=== PATIENT | male | born 1995 | race Caucasian/White ===

== ENCOUNTER 2023-07-05 17:12 | Emergency (ER) | payer OTHER, SELFPAY ==
[2023-07-05 18:10] VITALS: BP 132/80; PULSE 90; RESP 20; TEMP 36.9; O2SAT 99; BMI 35.6
--- NOTE | 2023-07-05 18:11 | ED.GENADULT ---
HPI - General Adult General Chief complaint: Skin/Abscess/Foreign Body Stated complaint: R big toe injury, chemical burn on feet Time Seen by Provider: 07/05/23 18:26 Source: patient and RN notes reviewed Mode of arrival: ambulatory Limitations: no limitations History of Present Illness HPI narrative: This is a 28-year-old male presenting to the emergency department for evaluation of ingrown toe on right great toe. Patient states that he noticed an ingrown toenail on his right great toe and attempted to remove this 3 weeks ago. He has had increasing pain and redness to his great toe. He also reports that he spilled acetone on his boots. This was 3 weeks ago. He has noticed the bottom of his feet peeling. Denies any fevers or chills. He is otherwise feeling well. Unsure when his last tetanus shot was. No other complaints or concerns at this time. MD complaint: Ingrown toenail Onset (ago): week(s) Location: lower extremity Radiation: non-radiation Relieving factors: none Exacerbating factors: none Related Data Previous Rx's Medication Instructions Recorded acetaminophen 500 mg tablet 500 mg PO Q6H PRN pain #30 tabs 07/05/23 (Tylenol Extra Strength) cephalexin 250 mg capsule 250 mg PO QID 7 days #28 caps 07/05/23 doxycycline hyclate 100 mg capsule 100 mg PO BID 7 days #14 caps 07/05/23 ibuprofen 600 mg tablet 600 mg PO Q6H PRN pain #45 tabs 07/05/23 white petrolatum-mineral oil 1 appl topical QID PRN dry skin 07/05/23 topical cream #113 grams Allergies Allergy/AdvReac Type Severity Reaction Status Date / Time No Known Allergies Allergy Unverified 05/01/20 16:37 Review of Systems Review of Systems: Yes all other systems are reviewed and are negative PMFSH Social History Social History Advance Directives: No Advance Directives Information Provided: Yes Physical Exam ED Vital Signs: Vital Signs - 24 hr 07/05/23 18:10 Temperature 98.5 F Pulse Rate 90 Respiratory Rate 20 Blood Pressure 132/80 Pulse Oximetry 99 Oxygen Delivery Method Room Air BMI result Body Mass Index 35.6 Const Other: General: Awake, alert, and oriented X3. No acute distress. HEENT: Normal inspection CVS: Normal heart rate and rhythm. Pulses normal. Respiratory: No respiratory distress Skin: Warm, dry, no rashes noted to exposed skin. Normal skin color. Normal skin turgor. Extremities: Right great toe, right lateral aspect, there is traumatic toenail missing with erythema and edema with equiste TTP in this region. Area of erythema does not extend proximally to the PIP. DP pulse 2+, Full ROM of the toe. no drainage. bottom of foot with dry, peeling skin, no sloughing or pain. Neuro: Oriented X 3. No motor deficit. No sensory deficit. Medications Administered Discontinued Medications Generic Name Dose Route Start Last Admin Trade Name Freq PRN Reason Stop Dose Admin Diphtheria/Tetanus/Acell Pertussis 0.5 ml 07/05/23 18:20 07/05/23 18:23 Diphth,Pertus(Acell),Tet Adult 0.5 Ml Syringe IM 07/05/23 18:21 0.5 ml .ONCE ONE Administration Medical Decision Making Medical Decision Making MDM Narrative: 28 y/o M presenting to the ER with complaints of right great toe pain. He has a hx of ingrown toenails and tried to remove this himself 3 weeks ago. Has had increased pain since. No fevers or chills. Also with chemical exposure 3 weeks ago to the bottom of his foot. On examination, pt nontoxic appearing and ambulatory. Toe appears infected, will tx with keflex. bottom of foot with peeling dry skin, no sloughing, and is superficial, no surrounding erythema. Given return precautions and podiatry referral. Pt stable for d/c. Differential Diagnosis Differential Diagnoses: The differential diagnosis associated with the presentation includes ingrown toenail. cellulitis, gout, chemical burn Discharge Plan Discharge Clinical Impression: Ingrown toenail Patient Disposition: Home, Self-Care Instructions: Ingrown Nail (ED) Additional Instructions: Please take prescribed antibiotic as directed. Finish the entire course even if you are feeling better. Please soak your foot 5-6 times per day in warm soapy water. Need to follow-up with podiatry. Please call to make an appointment. If any new or worsening symptoms occur including but not limited to worsening redness, pain, fevers or chills, please return for re-evaluation. Stop cutting down your ingrown toenails as this risks you for infection. Please apply Eucerin cream to the bottoms of your feet. Keep feet clean and dry. You may need to change her socks multiple times today. Prescriptions: New doxycycline hyclate 100 mg capsule 100 mg PO BID 7 Days Qty: 14 0RF cephalexin 250 mg capsule 250 mg PO QID 7 Days Qty: 28 0RF ibuprofen 600 mg tablet 600 mg PO Q6H PRN (Reason: pain) Qty: 45 0RF acetaminophen [Tylenol Extra Strength] 500 mg tablet 500 mg PO Q6H PRN (Reason: pain) Qty: 30 0RF white petrolatum-mineral oil Cream 1 appl topical QID PRN (Reason: dry skin) Qty: 113 0RF Referrals: Mireya Joe DPM [Physician] - Stand Alone Forms: Work/School Release Interventions: ED Discharge Assessment Last Done: 07/05/23 18:29 Discharge Date/Time: 07/05/23 18:29
[2023-07-05] MEDS: Diphth,Pertus(ACell),Tet Adult 0.5 ML SYRINGE IM (18:23)
== END 2023-07-05 18:29 | disposition home or self-care (01) ==
PROVIDERS: Emergency Provider Internal Medicine; PCP Family Medicine
DX: S90.411A Abrasion, right great toe, initial encounter (principal); L60.0 Ingrowing nail; R60.0 Localized edema; T25.4 Corrosion of unspecified degree of ankle and foot; T32.0 Corrosions involving less than 10% of body surface; X58.XXXA Exposure to other specified factors, initial encounter; Y93.9 Activity, unspecified; Y92.9 Unspecified place or not applicable; Y99.9 Unspecified external cause status; Z23 Encounter for immunization
CPT/HCPCS: 90471; 90715; 99282; 99284

== ENCOUNTER 2025-04-19 11:02 | Emergency (ER) | payer OTHER, SELFPAY ==
--- NOTE | ~2025-04-19 | XR_ITS ---
EXAMINATION: XR LUMBAR SPINE 2-3 VIEWS HISTORY: pain after lifting COMPARISON: There are no prior studies for comparison. FINDINGS: AP, lateral, and coned down views of the lumbar spine are submitted. Osseous mineralization is normal. Five nonrib-bearing lumbar vertebral bodies are identified, maintaining normal height without evidence of fracture or spondylolisthesis. There is slight leftward curvature which may be positional in nature. The intervertebral disc spaces are preserved. The posterior elements are intact. The visualized paraspinal soft tissues are unremarkable. XR/XR lumbar spine 2-3V IMPRESSION: Slight leftward curvature which may be positional in nature. Otherwise unremarkable examination of the lumbar spine. Electronically signed by: Todd Garcia MD 04/19/2025 11:59 AM EDT
--- NOTE | ~2025-04-19 | CT_ITS ---
EXAMINATION: CT LUMBAR SPINE WITHOUT CONTRAST CLINICAL INFORMATION: Severe right lower back pain COMPARISON: May 23, 2015 CT abdomen and pelvis TECHNIQUE: Axial CT was performed from mid T12 to the sacrococcygeal junction. Coronal and sagittal reformatted images were generated from the original axial data set. ALARA: The examination used one or more of the following radiation dose reduction techniques: Automated exposure control, iterative reconstruction, and/or adjustment of mA and/or KV. DLP: 1146 mGY*cm FINDINGS: Again noted are mildly prominent retroperitoneal lymph nodes on the right side. The largest is situated at the level L4, anterior to the lateral aspect of the psoas muscle and measures 8 mm short axis, previously 10 mm short axis. Visualized bowel, including most of the appendix, appears to be within normal limits. Paraspinal soft tissues are unremarkable. There are 5 nonrib-bearing lumbar segments. Vertebral body height and alignment is preserved. Posterior right T12 vertebral body, there is a low-density lesion with thickened trabecula consistent with benign vertebral hemangioma, enlarged since the prior. There is mild loss disc height and mild broad-based disc bulge involving L1-2. Minimal circumferential disc bulge is noted between L2-3 and L5-S1. No fracture lines are identified. CT/CT lumbar spine wo IV con IMPRESSION: No acute fracture. Very mild degenerative disc disease. Borderline retroperitoneal lymph node on the right has decreased in size since the prior CT performed in 2019. Electronically signed by: Milan Villa MD 04/19/2025 03:14 PM EDT
--- NOTE | 2025-04-19 11:07 | ED.GENADULT ---
HPI - General Adult General Chief complaint: Back Pain/Injury Stated complaint: back pain Time Seen by Provider: 04/19/25 11:59 Source: patient Mode of arrival: ambulatory Limitations: no limitations History of Present Illness ED Provider: JAKE Diaz HPI narrative: This is a 30-year-old male history of obesity presenting with severe low back pain with radiation to bilateral lower extremities x 2 weeks worsening. Pain is localized primarily to the right low back. He thinks this started after he was getting out of the shower however he does heavy lifting at work which does not seem to be helping. He reports he is having difficulty with walking and all changes in position hurt a lot. He rates pain 10/10. He is lying flat on the stretcher in his having difficulty rolling over to 1 side. He has been taking methocarbamol, Tylenol and ibuprofen with little to no improvement in symptoms. He denies urinary/bowel incontinence/retention, saddle anesthesias, fevers, chills. Patient did get an epidural injection not long ago to his low back which does not seem to be helping it only lasted a few weeks. Related Data Previous Rx's ?Medication ?Instructions ?Recorded acetaminophen 500 mg tablet 500 mg PO Q6H PRN pain #30 tabs 07/05/23 (Tylenol Extra Strength) cephalexin 250 mg capsule 250 mg PO QID 7 days #28 caps 07/05/23 doxycycline hyclate 100 mg capsule 100 mg PO BID 7 days #14 caps 07/05/23 ibuprofen 600 mg tablet 600 mg PO Q6H PRN pain #45 tabs 07/05/23 white petrolatum-mineral oil 1 appl topical QID PRN dry skin 07/05/23 topical cream #113 grams gabapentin 300 mg capsule 300 mg PO BID #30 caps 04/19/25 hydromorphone 2 mg tablet 2 mg PO Q6H PRN pain #10 tabs 04/19/25 (Dilaudid) Allergies Allergy/AdvReac Type Severity Reaction Status Date / Time No Known Allergies Allergy Verified 04/19/25 11:12 Review of Systems Review of Systems: Yes all other systems are reviewed and are negative PMFSH Past Medical History Attestation statement: The following information was validated with the patient. Source: old records reviewed and nursing notes reviewed Social History Social History Smoked in Last 30 Days: Yes Use of substances other than those prescribed or required for medical reasons: No Advance Directives: No Advance Directives Information Provided: Yes Physical Exam ED Exam Exam: Appearance: Alert.? Oriented X3.? No acute distress.?+ evidently uncomfortable Head: Normocephalic, atraumatic, no step-offs or deformities Eyes: Pupils equal, round and reactive to light.? ENT: Pharynx normal.? Neck: Normal inspection.? Neck supple.? CVS: Normal heart rate and rhythm.? Pulses normal.? Respiratory: No respiratory distress.? Breath sounds normal.? Abdomen: Soft and nontender.? Skin: Skin warm and dry.? Normal skin color.? Normal skin turgor.? Extremities: No lower extremity edema.? No calf ttp. 5/5 strength to bilateral upper and lower extremities Back: No midline tenderness, no C-spine tenderness, full range of motion, no CVA tenderness bilaterally + lumbosacral tenderness to palpation on exam right greater than left. Very painful range of motion in all directions. Difficulty with rolling [id number]. No saddle anesthesias. No footdrop. Neuro: Oriented X 3.? No motor deficit.? No sensory deficit. CN 2-12 intact Vital Signs: Vital Signs - 24 hr 04/19/25 11:08 04/19/25 12:00 04/19/25 14:00 Temperature 97.5 F 98.3 F 98.4 F Pulse Rate 86 68 71 Respiratory Rate 20 16 16 Blood Pressure 172/122 H 151/98 H 141/96 H Pulse Oximetry 100 99 99 Oxygen Delivery Method Room Air Room Air Room Air 04/19/25 15:56 04/19/25 15:57 Temperature Pulse Rate 75 Respiratory Rate 20 20 Blood Pressure 138/88 Pulse Oximetry 99 Oxygen Delivery Method Room Air BMI result Body Mass Index 38.6 vss Course Course Course Narrative: This is a rapid medical exam performed by Bartolo Werner NP: Additional HPI, ROS, PE not included below will be deferred to primary provider. Patient is a 30-year-old male presenting with complaint of acute exacerbation of chronic lower back pain. 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 States pain radiates up towards right shoulder. Difficulty initiating urine stream due to pain. BP in triage 172/122, denies hx of HTN. Plan: lumbar xray Reevaluation(s) Reevaluation #1: Care x-ray of lumbar spine with slight leftward curvature which may be positional in nature. Otherwise unremarkable. On exam he is extremely uncomfortable therefore CT lumbar spine ordered. I do not suspect acute cauda equina no indication for emergent MRI at this time. Will medicate with morphine and Valium. Time: 13:51 Reevaluation #2: Feels better after Dilaudid in his able to walk and sit up on his own. Patient will follow-up with Dr. Serra his spine doctor. No signs of cord compression. Will discharge him home with a short supply of Dilaudid as patient responded well to this. I did educate him on proper narcotic use. Educated patient on diagnosis and treatment plan, answered all question, patient verbalizes understanding. At this time patient will be discharged home, advised to return with new or worsening symptoms. Educated on worrisome signs and symptoms and when to return. At this time I feel comfortable discharge home. Time: 16:50 Reevaluation #3: Will give take home Narcan to patient. Time: 16:58 Medications Administered Discontinued Medications Generic Name Dose Route Start Last Admin Trade Name Santi PRN Reason Stop Dose Admin Diazepam 2.5 mg 04/19/25 13:32 04/19/25 13:44 Diazepam 10 Mg/2 Ml Cartridge IVPUSH 04/19/25 13:33 2.5 mg STAT STA Administration Hydromorphone HCl 1 mg 04/19/25 15:48 04/19/25 15:56 Hydromorphone Hcl 1 Mg/Ml Syringe IVPUSH 04/19/25 15:49 1 mg ONCE ONE Administration Protocol Morphine Sulfate 4 mg 04/19/25 13:32 04/19/25 13:44 Morphine Sulfate 4 Mg/Ml Cartridge IVPUSH 04/19/25 13:33 4 mg ONCE ONE Administration Protocol Medical Decision Making Medical Decision Making [facility] Narrative: This is a 30-year-old male presenting with severe low back pain with radiation to bilateral lower extremities right greater than left. History of lumbar radiculopathy status post epidural injections which only lasted a few weeks. Pain is severe 10/10 and patient is having difficulties with ambulation as well as range of motion. On exam patient evidently uncomfortable. Lumbosacral tenderness to palpation on exam right greater than left. He is unable to roll from side to side without assistance. History and physical exam concerning for lumbar radiculopathy likely L5-S1. Anterolisthesis or retrolisthesis possible as well as disc bulging. I do not suspect acute cord compression, epidural abscess. No neurological deficits on exam. Plan imaging. Pain control. Differential Diagnosis Differential Diagnoses: The differential diagnosis associated with the presentation includes (History and physical exam concerning for lumbar radiculopathy likely L5-S1. Anterolisthesis or retrolisthesis possible as well as disc bulging. I do not suspect acute cord compression, epidural abscess. No neurological deficits on exam.) Admission/Observation Consideration of admission/observation: Escalation of care including admission/observation considered (Possible) Independent Interpretation I performed an independent interpretation of an: Plain X-Ray (XR/XR lumbar spine 2-3V IMPRESSION: Slight leftward curvature which may be positional in nature. Otherwise unremarkable examination of the lumbar spine.) Radiology Impression Discussion of test interpretation with radiology: I have reviewed the radiologist's reading. External Record Review External record reviewed: Inpatient record, Office record, Outpatient record, Prior outpatient labs, Prior outpatient radiology and Primary care record Critical Care Time Critical Care Time Critical Care Time: Yes Total Critical Care Time: 35 Attestation: I attest to this time spent taking care of the patient, obtaining history, physical, reviewing labs, imaging, treatment of patients condition +/- specialist/hospitalist consult +/- procedure Discharge Plan Discharge Clinical Impression: Lumbar radiculopathy Patient Disposition: Home, Self-Care Instructions: Lumbar Radiculopathy (ED), Lower Back Exercises (ED) Additional Instructions: Take your medications as prescribed. If you were prescribed antibiotics today, it is important that you take your medication to their entirety, do not skip any doses, do not finish them early. Follow-up with your primary care provider this week. Return to the emergency department with new or worsening symptoms. Such as fevers, chills, chest pain, shortness of breath, nausea, vomiting, dizziness, headache, vision changes, lethargy In case of emergency call 911 A narcotic has been sent to your pharmacy please take this as prescribed. Do not take more than the prescribed dose. Narcotic medications can cause addiction. Please do not mix them with alcohol. Do not take them while driving or operating machinery. Do not take them with any other narcotics. Do not share them with friends or family. They can cause constipation. Take them only for severe pain. Prescriptions: New gabapentin 300 mg capsule 300 mg PO BID Qty: 30 0RF hydromorphone [Dilaudid] 2 mg tablet 2 mg PO Q6H PRN (Reason: pain) Qty: 10 0RF Rx Instructions: Partial Fill upon patient request. No Action doxycycline hyclate 100 mg capsule 100 mg PO BID 7 Days Qty: 14 0RF cephalexin 250 mg capsule 250 mg PO QID 7 Days Qty: 28 0RF ibuprofen 600 mg tablet 600 mg PO Q6H PRN (Reason: pain) Qty: 45 0RF acetaminophen [Tylenol Extra Strength] 500 mg tablet 500 mg PO Q6H PRN (Reason: pain) Qty: 30 0RF white petrolatum-mineral oil Cream 1 appl topical QID PRN (Reason: dry skin) Qty: 113 0RF Referrals: Gisela Dozier MD [Primary Care Provider, Family Practice] Print Language: Fijian
[2025-04-19 11:08] VITALS: BP 172/122; PULSE 86; RESP 20; TEMP 36.4; O2SAT 100; BMI 38.6
--- NOTE | 2025-04-19 11:44 | PC.NURSE ---
Pt roomed to chand bed- A&O X4 Pt states low back pain radiating to right abdomen. Pt denies incontinence. States some tingling down right leg but states very minor- able to ambulate. Pt states he took 750 methocarbamol and 975 Tylenol this am at 8a. It was not effective.
[2025-04-19 12:00] VITALS: BP 151/98; PULSE 68; RESP 16; TEMP 36.8; O2SAT 99
--- OUTSIDE RECORDS SUMMARY | 2025-04-19 12:20 | XMS_ITS | Encounter Summary ---
Author Organization [facility] Address [address] [place] [address] [place] [id number] Phone Care Team Providers Care Polishing Machine Operator Name Role Phone Gisela Dozier MD Primary Care Provider + [phone] Reason for Referral * MRI/CAT Scan - New Request Specialty Diagnoses / Procedures Referred By Contac t Referred To Contact Radiology Diagnoses Disorder of sacrum Procedures MRI Lumbar Spine Arian Serra MD [address] [place] [address], [address] [place] [id number] Phone: tel: fax: mailto: Referral ID Status Reason Start Date Expiration Date V isits Requested Visits Authorized [id number] New Request 04/19/2025 1 1 Encounter Details Date Type Department Care Team (Late st Contact Info) Description 04/19/2025 Orders Only [facility] Spine Medicine [address] [place] [address] [place] [address] Arian Serra MD [address] [place] [address], [address] [place] [id number] [email or web address] Disorder of sacrum (Primary Dx) Social History Tobacco Use Types Packs/Day Years Used Date Smoking Tobacco: Never Smokeless Tobacco: Never Comments:Vape Alcohol Use Standard Drinks/Week Comments Never 0 (1 standard drink = 0.6 oz pur e alcohol) Child or Family Care Answer Date Record ed Do you have problems with on e of the following making it difficult for you to work, study, or receive health care? No 12/23/2023 Education Answer Date Recorded Are you interested in help w ith more adult education (for example, completing high school, GED, job training, learning the [place] language, technical skills, or developing parenting skills)? No 12/23/2023 Are you concerned about learning? Not on file 12/23/2023 No 12/23/2023 Yes 12/23/2023 Food Answer Date Recorded Within the past 6 months we worried whether our food would run out before we got money to buy more. Sometimes True 024 Within the past 6 months the food we bought just didn't last and we didn't have enough money to get more. Never True 12/13 Residential Stability Answer Date Recor ded What is your housing situation today? I have otilio sing 12/23/2023 How many times have you move d in the past 12 months? Zero (I did not move) 12/23/2023 Paying for Meds Answer Date Recorded Do you have trouble paying for medicines? No 12/23/2023 Paying Utility Bills Answer Date Record ed Do you have trouble paying your heating or elect ricity bill? No 12/23/2023 Transportation Answer Date Recorded Has the lack of transportati on kept you from medical appointments or from getting medications? No 12/23/2023 Unemployment Answer Date Recorded Are you currently unemployed or working on a part-time or temporary basis, and looking for work? No 12/23/2023 Digital Access Answer Date Recorded No 12/23/2023 Yes 12/23/2023 Do you have reliable internet access at home? Ye s 12/23/2023 Do you have a device (e.g., phone, tablet, computer) with a working camera? Yes 12/23/2023 Intimate Partner Violence Answer Date R ecorded Denied Basic Needs Not on file 12/23/2023 In the past 12 months have y ou been in a relationship with a person who hurts, threatens, or tries to control you? No 12/23/2023 Worried food would run out Not on file 12/22 In the past 12 months have y ou been in a relationship with a person who hurts, threatens, or tries to control you? No 12/23/2023 Sex and Gender Information Value Date Recorded Sex Assigned at Male 02/27/2022 1:25 PM EDT Legal Sex Male 8:53 PM EDT Gender Identity Male 02/27/2022 1:25 PM EDT Sexual Orientation Choose not to disclose 2021 1:25 PM EDT documented as of this encounter Plan of Treatment Scheduled Orders Name Type Priority Associated Diagnoses Orde r Schedule MRI Lumbar Spine Imaging Routine Disorder of sacrum Expected: 04/19/2025, Expires: 07/19/2025 documented as of this encounter Visit Diagnoses Diagnosis Disorder of sacrum- Primary Disorders of sacrum documented in this encounter Additional Health Concerns Assessment Noted Time PHQ-2 Depression Total Score: 0 12/23/19 24 9:50 AM EDT documented as of this encounter Care Teams Polishing Machine Operator Relationship Specialty Start Date End Date Gisela Dozier MD [address] [place] [address] [email or web address] PCP - General Family Medicine 11/03/20 documented as of this encounter Additional Source Comments The information contained in this document represents components of the legal health record. It is not the complete legal health record.[facility]
--- OUTSIDE RECORDS SUMMARY | 2025-04-19 12:20 | XMS_ITS | Clinical Summary ---
Author Organization [facility] Address [address] [place] [phone] Phone Care Team Providers Care Senior Medical Billing Specialist Name Role Phone Unavailable Primary Care Provider Unavailabl e Immunizations Immunization Administration Dates Next Due DTaP 12/30/1999, 6,1995,05/09,1995 Hep B, ped/adol 1995,1995,1995 Hib (PRP-T) 04/11/1996,199 5,1995,03/14 IPV 12/30/1999,199 5,1995,03/14 Influenza, injectable, quadr ivalent, preservative free 04/24/2011 MMR 12/30/1999,01/12/1996 Meningococcal Conj (Menactra) MCV4P 06/07/2011,0 03/28/2008 Tdap 06/27/2008 Varicella 03/28/2008,12/05/1998 Family History Relation Name Status Comments Father Alive hypertension ag e: 49 Maternal Grandfather sepsis 2ndary to heart surgerly age: 81 Maternal Grandmother cirrhos is due to bypass surgery age: 65 Mother Alive epileptic age: 48 Other Alive Siblings: siste r kenton age: 22 Paternal Grandfather Alive cabg, b ipolar Paternal Grandmother Alive hyperte nsion narcolepsy, hypothroid Social History Tobacco Use Types Packs/Day Years Used Date Smoking Tobacco: Never Assessed Sex and Gender Information Value Date Recorded Sex Assigned at Not on file Legal Sex Male 6:28 PM EDT Gender Identity Not on file Sexual Orientation Not on file Last Filed Vital Signs Vital Sign Reading Time Taken Comments Blood Pressure 124/72 12/27/2013 12:00 AM EDT Pulse 94 09/13/2013 12:00 AM EST Temperature 37 C (98.6 F) 09/13/2013 12:00 AM EST Respiratory Rate - - Oxygen Saturation 97% 09/13/2013 12:00 AM EST Inhaled Oxygen Concentration - - Weight 126 kg (277 lb 9.6 oz) 12/27/2013 12:00 A M EDT Height 184.2 cm (6' 0.5 ) 12/27/2013 12:00 AM ED T Body Mass Index 37.13 12/27/2013 12:00 AM EDT Plan of Treatment Health Maintenance Due Date Last Done Comments DTaP,Tdap,and Td Vaccines (7 - Td or Tdap) 06/27/2018 06/27/2008, 12/30/1999, 04/12/1996, Additional history exists HPV Vaccines (1 - 3-dose SCDM series) 2022 Influenza Vaccines (#1) 2025 04/24/2011 COVID-19 Vaccine ( season) 2025 Hepatitis B Vaccines Completed 1995, 1995, 1995 HIB Vaccines Completed 04/11/1996, 06/16, 1995, Additional history exists IPV Vaccines Completed 12/30/1999, 06/16, 1995, Additional history exists MMR Vaccines Completed 12/30/1999, 01/12/1996 Varicella Vaccines Completed 03/28/2008, 12/05/1998 Meningococcal Vaccine Completed 06/07/2011, 008 Hepatitis A Vaccines Aged Out No long er eligible based on patient's age to complete this topic Men B Vaccine Aged Out No longer elig ible based on patient's age to complete this topic Pneumococcal Vaccine Aged Out No long er eligible based on patient's age to complete this topic
--- OUTSIDE RECORDS SUMMARY | 2025-04-19 12:20 | XMS_ITS | Encounter Summary ---
Author Organization [facility] Address [address] [place] [address] Phone Care Team Providers Care Trim Sawyer Name Role Phone Unavailable Primary Care Provider Unavailabl e Encounter Details Date Type Department Care Team (Late st Contact Info) Description 09/10/2009 Documentation [facility] Family Medicine [address] [place] [address] Family Medicine, Physician [address] [place] [address] Social History Tobacco Use Types Packs/Day Years Used Date Smoking Tobacco: Never Assessed Sex and Gender Information Value Date Recorded Sex Assigned at Not on file Legal Sex Male 6:28 PM EDT Gender Identity Not on file Sexual Orientation Not on file documented as of this encounter Plan of Treatment Not on file documented as of this encounter Visit Diagnoses Not on filedocumented in this encounter
--- OUTSIDE RECORDS SUMMARY | 2025-04-19 12:20 | XMS_ITS | Encounter Summary ---
Author Organization [facility] Address [address] [place] [address] Phone Care Team Providers Care Network Operations Center Engineer Name Role Phone Unavailable Primary Care Provider Unavailabl e Encounter Details Date Type Department Care Team (Late st Contact Info) Description 2018 Conversion Encounter [facility] [address] [address] Social History Tobacco Use Types Packs/Day Years [...]
--- OUTSIDE RECORDS SUMMARY | 2025-04-19 12:20 | XMS_ITS | Encounter Summary ---
Author Organization [facility] Address [address] [place] [address] Phone Care Team Providers Care Gum Machine Operator Name Role Phone Unavailable Primary Care Provider Unavailabl e Encounter Details Date Type Department Care Team (Late st Contact Info) Description 09/16/2009 Documentation [facility] [place] [facility] [address] [place] [address] Family Medicine, Physician [address] [place] [address] Social History Tobacco Use Types Packs/Day Years [...]
--- OUTSIDE RECORDS SUMMARY | 2025-04-19 12:20 | XMS_ITS | Encounter Summary ---
Author Organization [facility] Address [address] [place] [address] Phone Care Team Providers Care Mechanic Senior Name Role Phone Gisela Dozier MD Primary Care Provider + [phone] Reason for Visit * Reason Onset Date Comments Appointment 03/06/2025 Same day cancel Encounter Details Date Type Department Care Team ([facility] st Contact Info) Description 03/06/2025 Telephone [facility] [address] [place] [address] Gisela Dozier MD [address] [facility] [address] [place] [address] [email or web address] Appointment (Same day cancel) Social History Tobacco Use Types Packs/Day Years [...] high school, GED, job training, learning the [place] language, technical skills, or developing parenting skills)? [...] your housing situation today? I have otilio canseco 12/23/2023 How many times have you move [...] PM EDT documented as of this encounter Progress Notes * Tiana Gifford - 03/06/2025 8:48 AM EDT [facility] PEN Top Smart Phrases: 24-48 Hour No-Show Notice If caller not the patient: Name: Relationship: Cancel Appt Visit Type: PHYSICAL EXAM VISIT Cancelation Reason: Personal Reasons Cancelation Detail: doesn't feel like its essential Was Appt Reschedule: No Why Reschedule was not performed (W/Detail) na Awareness: I have reiterated our late cancellation policy to the caller. Agent Action: > Reason for Call: NO SHOW > Comment: Enter Cancel Appt date > Route: Route to FD if the No-Show is a future date. > Route: OXBOW SDV and Sick Visit No-Show, route to RN for rescheduling. Do not Call Center: Ensure the appt has been cancel from the future tab > Reiterate Scripting: Provide our late cancellation policy to the caller Required Scripting for Existing Patients: Thank you for notifying us about the cancellation. We will inform the provider. As a reminder, our policy requires at least 24 hours' notice for cancellations, as providers reserve time for your appointment, and short notice often makes it difficult to reschedule. You can cancel appointments anytime through your [facility]. We appreciate your understanding. Required Scripting for New Patients: Thank you for notifying us about the cancellation. We will inform the provider. Please be aware of our 48-hour cancellation policy for new patients. If you need to cancel or reschedule, we ask for at least 48 hours' notice. If you miss an appointment or cancel without sufficient notice, it will be marked as a No-Show appointment. We allow for two unforeseen circumstances under this policy. This policy ensures that our providers can manage their schedules effectively. Additionally, you can cancel appointments anytime through your [facility]. documented in this encounter Plan of Treatment Not on file documented as of this encounter Visit Diagnoses Not on filedocumented in this encounter Additional Health Concerns Assessment Noted Time PHQ-2 Depression Total Score: 0 12/23/19 24 9:50 AM EDT documented as of this encounter Care Teams Mechanic Senior Relationship Specialty Start Date End Date Gisela Dozier MD [address] [place] [address] PCP - General Family Medicine 11/03/20 documented as of this encounter Additional Source Comments The information contained in this document represents components of the legal health record. It is not the complete legal health record.[facility]
--- OUTSIDE RECORDS SUMMARY | 2025-04-19 12:20 | XMS_ITS | Encounter Summary ---
Author Organization [facility] Address [address] [place] [address] Phone Care Team Providers Care Primer Boxer Name Role Phone Gisela Dozier MD Primary Care Provider [phone] Gisela Dozier MD Unavailable [phone] Encounter Details Date Type Department Care Team (Late st Contact Info) Description 12/23/2022 Procedure Pass [facility], [address] [address] Social History Tobacco Use Types Packs/Day Years Used Date Smoking Tobacco: Never Smokeless Tobacco: Never Comments:Vape Alcohol Use Standard Drinks/Week Comments Never 0 (1 standard drink = 0.6 oz pur e alcohol) Child or Family Care Answer Date Record ed Do you have problems with on e of the following making it difficult for you to work, study, or receive health care? No 06/11/2021 Education Answer Date Recorded Are you interested in help w ith more adult education (for example, completing high school, GED, job training, learning the [place] language, technical skills, or developing parenting skills)? No 06/11/2021 Food Answer Date Recorded Within the past 6 months we worried whether our food would run out before we got money to buy more. I choose not to answer 06/11/2021 Within the past 6 months the food we bought just didn't last and we didn't have enough money to get more. I choose not to answer 06/11/2021 Residential Stability Answer Date Recor ded What is your housing situation today? I have otilio canseco 06/11/2021 How many times have you move d in the past 12 months? Zero (I did not move) 06/11/2021 06 Are you worried that in t he next 2 months, you may not have your own housing to live in? I choose not to answer 06/11/20 21 Paying for Meds Answer Date Recorded Do you have trouble paying for medicines? No 06/11/2021 Paying Utility Bills Answer Date Record ed Do you have trouble paying your heating or elect ricity bill? No 06/11/2021 Transportation Answer Date Recorded Has the lack of transportati on kept you from medical appointments or from getting medications? I choose not to answer 06/11/2021 Unemployment Answer Date Recorded Are you currently unemployed or working on a part-time or temporary basis, and looking for work? No 06/11/2021 Sex and Gender Information Value Date Recorded [...] filedocumented in this encounter Additional Health Concerns Infection Onset Date Last Indicated Resolved Time COVID-19 05/16/2024 05/16/2024 06/06/2024 1:21 AM EDT documented as of this encounter Care Teams Primer Boxer Relationship Specialty Start Date End Date Gisela Dozier MD 15 [facility] [address] [place] [address] [email or web address] PCP - General Family Medicine 11/03/20 Gisela Dozier MD 15 [facility] [address] [place] [address] Insurance Assigned Provider 10/18/21 documented as of this encounter Additional Source Comments The information contained in this document represents components of the legal health record. It is not the complete legal health record.[facility]
--- OUTSIDE RECORDS SUMMARY | 2025-04-19 12:20 | XMS_ITS | Clinical Summary ---
Author Organization [facility] Address [address] [place] [address] Phone Care Team Providers Care Shore Working Supervisor Name Role Phone Gisela Dozier MD Primary Care Provider [phone] Allergies Active Allergy Reactions Criticality Noted Date Comments Diagnostic Aids, Otherwise Unspecified Hives,Nausea and/or Vomiting 06/11/2021 Hypoallergenic products Medications loperamide (IMODIUM) 2 mg capsule Take 2 mg by mouth 4 (four) times a day as needed for diarrhea. Active ibuprofen (ADVIL,MOTRIN) 800 MG tablet Take 800 mg by mouth every 8 (eight) hours as needed for pain (specific location in comments). 4 Active buPROPion (WELLBUTRIN XL) 150 MG ER 24 hr tablet Take 1 tablet (150 mg total) by mouth daily. 30 tablet 1 4 Active escitalopram oxalate (LEXAPRO) 10 MG tabletIndications: Generalized anxiety disorder,Depressiv e disorder,PTSD (post-traumatic stress disorder) TAKE 1 TABLET BY MOUTH EVERY DAY 90 tablet 4 Active methocarbamoL (ROBAXIN) 500 MG tablet TAKE 1 TABLET BY MOUTH NIGHTLY AT BEDTIME. 90 tablet 5 Active lidocaine (LIDODERM) 5 % Place 1 patch onto the skin daily. Remove & Discard patch within 12 hours or as directed by 30 patch 2 5 Active triamcinolone acetonide 0.025 % ointment Apply topically 2 (two) times a day. 30 g 1 5 Active dextroamphetamine- amphetamine (ADDERALL XR) 10 MG 24 hr capsuleIndications :Attention deficit hyperactivity disorder (ADHD), unspecified ADHD type Take 1 capsule (10 mg total) by mouth every morning. Active Active Problems Problem Noted Date Diagnosed Date Disorder of sacrum 02/28/2025 Irritant contact dermatitis 04/25/2024 Assessment & Plan (04/25/2024 2:56 PM EDT): Makes sense that chronic grit in his glove is causing this problem. As Wes reports he did well with double gloving as a prophylaxis I recommend he adopt this as a regular practice. Mass of subcutaneous tissue of back 04/03/2024 Hair loss 09/03/2022 Assessment & Plan (11/19/2022 11:59 AM EDT): He had considered the options presented for treatment of hair loss and would like to start taking minoxidil. We discussed risks and benefits and the medication was prescribed Assessment & Plan (09/03/2022 3:22 PM EST): The drug monograph for topical minoxidil does list animal studies suggesting harm to patients with their own use but I reassured Wes he is not at risk of causing his sister harm if he decides to use this. He just needs to wash his hands after applying it. However, it will treat the hair loss at the top of his head but not the front. Options that are more likely to be helpful all over are low-dose finasteride, or very low-dose (compounded) oral minoxidil. This has not been studied in large clinical trials but anecdotally seems to be both safe and effective. I am willing to prescribe either one if desired. He is going to think about this and get back to me Chronic right-sided low back pain without sciati ca 02/02/2022 Assessment & Plan (02/06/2025 10:03 AM EDT): - Muscle relaxers provide limited relief. - Advised to wear the brace throughout the workweek as a preventive measure. - Refill for lidocaine patches provided. Referred back to physiatry Orders: Ambulatory referral to [facility] Physiatry Assessment & Plan (12/24/2022 1:47 PM EDT): Wes has failed conservative treatment and we agreed that is appropriate time for additional intervention. I am ordering an MRI to see whether he has a problem that is amenable to surgical intervention. He understands that he may be referred to a surgeon if such a problem is found. In the meantime, I am prescribing nonexpired muscle relaxants for him to continue taking at bedtime so that he can sleep without pain. He reports they are highly sedating so we will need to limit the use to bedtime. Assessment & Plan (11/19/2022 11:50 AM EDT): Physical exam and history does not reveal any red flags. I believe this injury does appear to be musculoskeletal in nature similar to his previous injuries. He will continue with tylenol and lidocaine patches. We discussed physical therapy which he declines at this time. We also reviewed importance of proper body mechanics and lifting. Assessment & Plan (02/02/2022 4:38 PM EDT): No red flags on history and physical. Appears musculoskeletal in nature, longstanding and exacerbated by his recent accident but reportedly more of the same. Typically responds well to Tylenol or Advil, which he can continue taking. Err on the side of Tylenol more than Advil to protect the stomach. He has had good response to lidocaine patches in the past which I will attempt to prescribe and if these are not covered by his insurance I recommend [id number] lidocaine jelly. Routine medical exam 06/12/2021 Assessment & Plan (12/23/2023 3:43 PM EDT): 28 y.o. male here for complete physical exam. USPSTF A&B recommendations reviewed with pt. BP: WNL BMI: Body mass index is 37.25 kg/m ., Recommend improving sleep, and drinking less soda STI testing for teens and adults at risk, and at least one lifetime HIV and hep C test: Ordered PrEP for persons at high risk of HIV: Declines plans in the next year: is , other partners are sterile or use control Depression and anxiety screens: Positive and he is interested in trying an SSRI. Has done so before without much luck but he is willing to give it another go. Recommend escitalopram 10 mg. Reviewed risks and benefits. Smoking cessation counseling: currently vapes and states he plans to quit when the baby comes, will throw it away . Declines smoking cessation aid. Alcohol use counseling: N/A LTBI screening in people at increased risk: N/A Vaccinations: recommend COVID vaccine, he will consider it. He is otherwise up-to-date Last dental visit: will have his remaining teeth removed later this month and will be getting dentures. Lipid screening to consider statin for primary prevention for adults 40-75, or at younger ages with risk factors: WNL 2020, repeat 4-6 years Assessment & Plan (06/12/2021 4:05 PM EDT): 26 y.o. male here for complete physical exam. He is aware that nicotine is not a safe treatment for his psychiatric diagnoses but he is not interested in any additional treatments at this time. We will recheck LFTs in re: nonalcoholic fatty liver. It is fortunate that he drinks no alcohol. USPSTF A&B recommendations reviewed with pt. BP: WNL BMI: Body mass index is 36.44 kg/m . and he has done really excellent job his weight loss on him so far. I do discourage drinking large amounts of sugar, especially given the state of his teeth. STI testing for teens and adults at risk, and at least one lifetime HIV and hep C test: done today PrEP for persons at high risk of HIV: I strongly recommend this for Wes. He is not interested. plans in the next year: Reports that his current female partners are not fertile Depression screen: As above Smoking cessation counseling: Counseled that vaping is detrimental to his health Alcohol use counseling: N/A LTBI screening in people at increased risk: N/A Vaccinations: Updated tetanus vaccine today. He does not want Covid or flu vaccine. Last dental visit: As above Lipid screening to consider statin for primary prevention for adults 40-75, or at younger ages with risk factors: Will check today given BMI and known fatty liver disease Current every day nicotine vaping 06/12/2021 Anxiety disorder Assessment & Plan (04/25/2024 2:59 PM EDT): Can try adding wellbutrin to offset sexual AE's or switch to a different medication altogether. Wes is open to the first option. Rx 150 mg XL. I also suggested he try playing video games with the sound turned down or off and he had not thought of that but liked the idea. Attention deficit hyperactivity disorder (ADHD) Assessment & Plan (02/06/2025 10:03 AM EDT): - Reduced Adderall dosage to 10 mg and is using it sparingly as needed. Orders: dextroamphetamine-amphetamine (ADDERALL XR) 10 MG 24 hr capsule; Take 1 capsule (10 mg total) by mouth every morning. Assessment & Plan (09/24/2024 10:07 AM EST): Resume 10 mg dose, which has been well tolerated and reasonably effective. Continue home BP monitoring. Assessment & Plan (08/28/2024 2:27 PM EST): Symptoms significantly improved on current medications. No ongoing adverse effects. Increased from 10 to 15 mg. Controlled substance agreement: previously signed Urine drug screen: Obtained today per standard clinic protocol F/u 1 month Orders: Toxicology screen, urine; Future dextroamphetamine-amphetamine (ADDERALL XR) 15 MG 24 hr capsule; Take 1 capsule (15 mg total) by mouth every morning. Assessment & Plan (06/22/2024 3:10 PM EST): Adderall XR 10 mg has been prescribed, to be taken once daily in the morning. The potential side effects, including appetite suppression, increased heart rate, blood pressure, and potential interference with sleep, have been discussed. He has been advised to monitor his meal intake and ensure he eats regularly. The risks of dependence and addiction were also explained. Wes and I reviewed our clinic's standard controlled substance agreement which both of us signed today. He was instructed to take the medication as prescribed and to contact the office if any issues arise. Follow-up 1 month Assessment & Plan (06/08/2024 5:10 PM EDT): Could treat with Strattera but if so, I would recommend coming off escitalopram. Could try increasing Wellbutrin. He is not interested in either of these. He would like to try Adderall again. We will need a separate visit for this. 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 - Discussed the diagnosis of autism spectrum disorder and associated hypersensitivity. - A letter will be provided stating his diagnosis and sensory sensitivities to support his case in the workplace. - Continue to provide support and counseling as needed for workplace accommodations. PTSD (post-traumatic stress disorder) Depressive disorder NAFLD (nonalcoholic fatty liver disease) Moderate obesity Overview (06/12/2021): Max weight 350 Resolved Problems Problem Noted Date Diagnosed Date Resolved Date Tinea pedis of both feet 12/15/202205/2024 S/P surgical removal of pilonidal cyst 10/12/2022 12/24/2022 Pilonidal cyst 09/03/2022 09/03/2022 Ingrown nail 08/27/2022 12/24/2022 Pilonidal cyst with abscess 08/13/2022 12/24/2022 Assessment & Plan (09/03/2022 3:19 PM EST): Continue hot compresses. Follow-up with surgery as scheduled. Assessment & Plan (08/13/2022 2:32 PM EST): After obtaining verbal consent, attempted I&D. The skin was cleaned with Hibiclens and an incision was made with a sterile scalpel. Only a small amount of sanguinous fluid could be expressed. Patient was instructed to take hot sitz bath's or apply hot compresses and see general surgery next week after taking antibiotics for several days for their opinion on whether surgical intervention is needed for a potential deeper tract. This abscess is slightly more lateral to the jared cleft than I am used to seeing pilonidal cysts but I would still like their opinion. Encounters Date Type Department Care Team Description 04/19/2025 Orders Only [facility] [address] [place] [address] Arian Serra MD Disorder of sacrum (Primary Dx) 03/20/2025 2:00 PM EDT Procedure visit [facility] [address] [place] [address] Wojciech Cherry MD Ingrown toenail of right foot (Primary Dx) 03/15/2025 9:40 AM EDT Telemedicine - audio only [facility] [address] [place] [address] [place] [address] Arian Serra MD Disorder of sacrum (Primary Dx) 03/06/[address] [address] Gisela Dozier MD Appointment (Same day cancel) 02/28/2025 3:40 PM EDT Telemedicine [facility] [address] [place] [address] Ailyn Edwards, HARVEY Ingrown toenail of right foot (Primary Dx) 02/28/2025 9:50 AM EDT Procedure visit [facility] [address] [address] Arian Serra MD Disorder of sacrum (Primary Dx) 02/28/2025 9:46 AM EDT - 02/28/2025 11:59 PM EDT Hospital Encounter [address] [address] Arian Serra MD Discharge Disposition: Home or Self Care 02/19/2025 1:20 PM EDT Office Visit [facility] [address] [place] [address] [place] [address] Arian Serra MD Disorder of sacrum (Primary Dx) 02/04/2025 4:40 PM EDT Office Visit [facility] [address] [place] [address] Gisela Dozier MD Chronic right-sided low back pain without sciatica (Primary Dx); Pain of right thumb; Attention deficit hyperactivity disorder (ADHD), unspecified ADHD type; Rash and other nonspecific skin eruption from Last 3 Months Immunizations Immunization Administration Dates Next Due DTaP 12/30/1999, 6,1995,05/09,1995 Hepatitis B 1995,1995,1995 Hib,PRP-T 04/11/1996, 5,1995,03/14 INFLUENZA, SPLIT VIRUS, TRIVALENT PF 04/24/2024 IPV 12/30/1999, 5,1995,03/14 Influenza Quadrivalent Prese rvative Free IM 04/24/2011 MMR 12/30/1999,01/12/1996 Meningococcal MCV4P 06/07/2011,03/28/2008 Tdap 07/05/2023,06/11/2021,06/27/2008 Varicella 03/28/2008,12/05/1998 Family History Medical History Relation Comments Dementia Paternal Grandfather No Known Problems Son Relation Status Comments Paternal Grandfather Son Social History Tobacco Use Types Packs/Day Years Used Date Smoking Tobacco: Never Smokeless Tobacco: Never Tobacco Cessation:Counseling Given: Not Answered Comments:Vape Alcohol Use Standard Drinks/Week Comments Never [...] high school, GED, job training, learning the [place] language, technical skills, or developing parenting skills)? [...] not to disclose 2021 1:25 PM EDT Last Filed Vital Signs Vital Sign Reading Time Taken Comments Blood Pressure 142/78 03/20/2025 1:31 PM EDT Pulse 66 03/20/2025 1:31 PM EDT Temperature 36.6 C (97.8 F) 03/20/2025 1:31 PM EDT Respiratory Rate 16 11/19/2022 10:43 AM EDT Oxygen Saturation 99% 03/20/2025 1:31 PM EDT Inhaled Oxygen Concentration - - Weight 147 kg (324 lb) 03/20/2025 1:31 PM EDT Height 190.5 cm (6' 3 ) 02/19/2025 1:09 PM EDT Body Mass Index 40.5 02/19/2025 1:09 PM EDT Plan of Treatment Health Maintenance Due Date Last Done Comments HEPATITIS A VACCINES (1 of 2 - Risk 2-dose series) 2014 DEPRESSION SCREENING 12/22/2024 12/23/2023 INFLUENZA VACCINE (#1) 2025 04/24/2024, 2010 COVID-19 VACCINE ( season) 2025 Adult Td,Tdap Booster 07/05/2033 07/05/2023 , 06/11/2021, 06/27/2008 HIB VACCINES Completed 04/11/1996, 06/16, 1995, Additional history exists MENINGOCOCCAL VACCINES (ACWY) Completed 06/07/2011, 03/28/2008 HEPATITIS C SCREENING Completed 12/23/2023 , 12/23/2022, 12/23/2022, Additional history exists HIV ONE-TIME SCREENING (18-65 YEARS) Completed 12/23/2023 SMOKING STATUS SCREENING (Once After 26 Yrs) Completed 03/20/2025 MENINGOCOCCAL VACCINES (B) Aged Out N o longer eligible based on patient's age to complete this topic PNEUMOCOCCAL VACCINES (0-49 years) Aged Out No longer eligible based on patient's age to complete this topic Medical Devices Not on file Procedures Procedure Name Priority Date/Time Associated Diagnosis Comments HEPATITIS C ANTIBODY, QUALITATIVE Routine 12/23/2023 11:06 AM EDT Routine medical exam from Last 3 Months or Most Recently Relevant to Health Maintenance Results * Hepatitis C antibody, qualitative (12/23/2023 11:06 AM EDT) HCV NON-REACTIV E NON-REACTI VE [facility] Blood 12/23/2023 11:0 6 AM EDT 12/23/2023 11:08 AM EDT us Gisela Dozier MD LAB BLOOD ORDERABLES Final R esult [address] [address] from Last 3 Months or Most Recently Relevant to Health Maintenance Insurance [facility] [address] [place] [address] Care Teams Shore Working Supervisor Relationship Specialty Start Date End Date Gisela Dozier MD [address] [place] [phone] [email or web address] PCP - General Family Medicine 11/03/20 Additional Source Comments The information contained in this document represents components of the legal health record. It is not the complete legal health record.[facility]
[2025-04-19] MEDS: diazePAM 10 MG/2 ML CARTRIDGE 2.5 MG IVPUSH (13:44)
[2025-04-19 14:00] VITALS: BP 141/96; PULSE 71; RESP 16; TEMP 36.9; O2SAT 99
[2025-04-19 15:56] VITALS: RESP 20
[2025-04-19 15:57] VITALS: BP 138/88; PULSE 75; RESP 20; O2SAT 99
[2025-04-19 17:16] VITALS: BP 138/88; PULSE 75; RESP 20; TEMP 36.1; O2SAT 99
[2025-04-19] MEDS: Naloxone HCl Nasal 4 MG SPRAY NOSTRILALT (17:16)
== END 2025-04-19 17:16 | disposition home or self-care (01) ==
PROVIDERS: Emergency Provider Emergency Medicine; PCP Family Medicine
DX: M54.16 Radiculopathy, lumbar region (principal); M54.50 Low back pain, unspecified
CPT/HCPCS: 72100; 72131; 96374; 96375; 99284; J1171; J2270; J3360

== ENCOUNTER → 2025-04-19 11:12 | Outpatient (BNV) | payer OTHER, SELFPAY | PROVIDERS: Emergency Provider Emergency Medicine; PCP Family Medicine; Visit Provider Radiology Diagnostic Radiology | DX: M54.50 Low back pain, unspecified (principal); S39.012A Strain of muscle, fascia and tendon of lower back, initial encounter | CPT/HCPCS: 72100; 72131 ==